=== PATIENT | male | born 1995 | race Caucasian/White ===

== ENCOUNTER 2018-12-14 00:32 | Emergency (ER) | payer OTHER ==
--- NOTE | 2018-12-14 00:40 | EDPHY ---
General - History Smoking Status: Current some day smoker Time Seen by Provider: 12/14/18 00:34 Narrative: CLINICAL IMPRESSION: Acute alcohol intoxication ASSESSMENT/PLAN: Patient is a 23-year-old male who presents to the emergency department with acute alcohol intoxication. Patient is afebrile, not toxic appearing and in no acute distress. His abdomen was soft and nontender, no evidence of a surgical abdomen. The patient was clinically intoxicated on physical examination, admitted to alcohol use this evening. He denied any physical complaints. I considered other etiologies to include head injury, hypoglycemia, CVA, electrolyte abnormality, substance use and withdrawal however low clinical suspicion. The patient will continue to be observed in the emergency department until he clinically romario. This case was discussed with Dr. Bowen who will resume care of this patient. The patient remained hemodynamically stable under my care and prior to transfer of care. DIFFERENTIAL DX: Differential diagnosis including but not limited to and in no particular order acute alcohol intoxication, alcohol abuse, alcohol withdrawal, substance abuse, toxidrome, medication overdose, CVA, head trauma, electrolyte abnormality. ED COURSE: 0035: Case discussed with Dr. Cornejo. 0122: Patient is sleeping, heart rate has normalized to 74. Oxygen saturation is 94% on room air. Dr. Cornejo the will resume care of this patient at this time. CHIEF COMPLAINT: Acute alcohol intoxication HPI: Patient is a 23-year-old male brought in by ambulance after being found down reportedly by police. Patient endorses alcohol use this evening, cannot disclose how much. Denies any other substance use or abuse. History is limited secondary to intoxication. He denies any physical complaint. Per EMS the patient was unable to ambulate independently, lifted to the stretcher. PMH: Denies Family History: Not contributory Social History: Alcohol use occasional smoker REVIEW OF SYSTEMS: All other systems negative Constitutional: No fever, no chills, appetite change. Eyes: No discharge, vision change ENT: No sore throat, congestion, ear pain. Cardiovascular: No chest pain, no palpitations. Respiratory: No cough, no shortness of breath. Gastrointestinal: No abdominal pain, no vomiting, diarrhea. Genitourinary: No hematuria, dysuria, flank pain. Musculoskeletal: No back pain, joint swelling, joint pain, myalgias. Skin: No rashes, color change. Neurological: No headache, dizziness, weakness. PHYSICAL EXAM: General Appearance: Well-developed, intoxicated, not toxic-appearing. HENT: Normocephalic, atraumatic. Bilateral external ears are normal. Nares are clear, mucosa is pink. Oropharynx is clear, uvula is midline. There is no tonsillar enlargement or exudate. The dentition is normal. Eyes: PERRLA, EOMI. Conjunctiva pink, no pallor or injection. Neck: Supple, nontender, no lymphadenopathy, no midline pain, FROM. Respiratory: There are no retractions, lungs are clear to auscultation. Cardiac: Mildly tachycardic on arrival, no murmurs or gallops. Gastrointestinal: Abdomen is soft, nontender, bowel sounds normal, no masses/ hernia, no rigidity, guarding or focal peritoneal findings. Neurological: Patient is alert to time and place, slurring his speech. He is unstable on his feet. Skin: Warm, dry, no rashes, no nodules on palpation. Musculoskeletal: Extremities are symmetrical, full range of motion, no tenderness, deformity, swelling, or erythema. Psychiatric: Mood and affect are normal. MEDICAL DECISION MAKING: Patient was seen independently. Secondary supervising physician at time of evaluation was Dr. Cornejo, she will resume care of this patient. Diagnosis: Acute alcohol intoxication. Summary: See Assessment and Plan for summary of ED visit Decision to obtain medical records or history from someone other than the patient: Yes, EMS and PD Review / Summarize previous medical records: Yes Discussed patient with another provider: Yes, Dr. Cornejo Patient Progress: Stable, dispo pending. (Tawanna Breaux) PHYSICIAN DOCUMENTATION: The patient was evaluated and managed by the Physician Slate Handler. My co- signature indicates that I have reviewed this chart and I agree with the findings and plan of care as documented. I am the secondary supervising physician. 4:05 a.m.- Patient now awake and alert, ambulatory. [facility] will be [facility] hold. ( Irais Cornejo) - Objective Vital Signs: Initial Vital Signs Heart Rate 118 H 12/14/18 00:35 Respiratory Rate 18 12/14/18 00:35 Blood Pressure 128/74 H 12/14/18 00:35 O2 Sat (%) 95 12/14/18 00:35 O2 Delivery Mode Room Air Allergies/Adverse Reactions: POLLEN Allergy (Uncoded 12/14/18 00:34) Home Medications: Medication Instructions Recorded [facility] [Lithobid 300 300 mg PO DAILY #20 tab 09/06/14 mg (*)] [facility] [Lithobid 300 900 mg PO HS #60 tab 09/06/14 mg (*)] OLANZapine DISINTEGR [ZyPREXA 5 mg PO DAILY #20 tab 09/06/14 ZYDIS (*)] OLANZapine [ZyPREXA 2.5 mg (*)] 7.5 mg PO HS #60 tab 09/06/14 Departure - Departure Disposition: Home, Routine, Self-Care Clinical Impression: Alcohol intoxication Qualifiers: Complication of substance-induced condition: uncomplicated Qualified Code(s): F10.920 - Alcohol use, unspecified with intoxication, uncomplicated Condition: Good Instructions: Abuse of Alcohol (ED) Additional Instructions: DISCHARGE INSTRUCTIONS FROM YOUR PROVIDER Thank you for visiting our emergency department today. Please keep in mind that discharge from the emergency department does not mean that there is nothing wrong - it simply means that we have not identified an emergency condition that requires further evaluation or treatment in the hospital. You should always plan to follow up with primary care for re-evaluation of your condition in the next 2-3 days. Please avoid heavy alcohol use, it is very dangerous to your health and safety. Seek immediate medical attention for seizures, confusion, uncontrolled vomiting , vomiting blood or other serious concerns People present with illnesses and injuries in different ways, and it is always possible that we have missed something. Again, thank you for choosing our emergency department. We hope that you feel better. Referrals: ALLA Hernandez,. [Clinic] - As per Instructions Fozia Christiansen MD [[facility] [place] Primary Care Provider] - As per Instructions (This is a referral for a primary care provider if you do not have 1)
[2018-12-14 04:10] VITALS: BP 120/80
== END 2018-12-14 04:09 | disposition home or self-care (01) ==
LOC: EDUNIT#
DX: F10.920 Alcohol use, unspecified with intoxication, uncomplicated (principal)